=== PATIENT | female | born 2000 | race Caucasian/White ===

== ENCOUNTER 2021-11-10 00:08 | Emergency (ER) | payer MEDICAID ==
[~2021-11-10] VITALS: Ht 154.9 cm; Wt 73.0 kg
[2021-11-10 00:27] VITALS: BP 126/72
[2021-11-10] MEDS ORDERED: ACETAMINOPHEN 325MG TABLET PO ONE (00:45)
[2021-11-10] MEDS ORDERED: IBUPROFEN 600MG TABLET PO ONE (00:45)
[2021-11-10] MEDS ORDERED: NAPR-1176 MT (00:45)
[2021-11-10] MEDS ORDERED: TOPUD MT (00:45)
== END 2021-11-10 00:51 | disposition home or self-care (01) ==
LOC: ER 00:08
DX: M62.830 Muscle spasm of back (principal); M54.50 Low back pain, unspecified; M54.2 Cervicalgia
CPT/HCPCS: 81025; 99282